=== PATIENT | female | born 1940 | race Caucasian/White ===

== ENCOUNTER → 2020-06-14 12:09 | Outpatient (CLI) | payer MEDICARE, BC, SELFPAY ==
--- NOTE | 2020-06-14 13:00 | MRI_ITS ---
STUDY: MRI BRAIN WITH AND WITHOUT CONTRAST (ATTENTION INTERNAL AUDITORY CANALS - I.A.C.''s) REASON FOR EXAM: Female, 79 years old. Sudden sensorineural hearing loss LEFT ear, hx prior surgery for acoustic neuroma right ear 1995 TECHNIQUE: Standardized multiplanar fat and water weighted pulse sequences were obtained. IV Dotarem 11ml was administered for the contrast portion of the examination. Thin multiplanar sections through the internal auditory canals were also performed with and without contrast. COMPARISON: None. FINDINGS: Right mastoidectomy bowl is completely filled with soft tissue density without obvious contrast enhancement. 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 Minimal mucosal edema in the posterior aspect of the left temporal mastoid bone. Normal left internal auditory canal without suspicious contrast enhancement of the 7th and 8th nerve bundles. No abnormal contrast enhancement of the membranous labyrinth. There is no demonstrated intracanalicular or cisternal vestibular schwannoma (acoustic neuroma). There is no enhancement of the left VIIth or VIIIth cranial nerves. Normal left cochlea, vestibule and semicircular canal. Normal size of the ventricles and extra-axial spaces for the patient''s age. Multiple T2 FLAIR hyperintensity foci in the white matter of both cerebral hemispheres are chronic white matter ischemic changes. No diffusion restriction throughout the brain parenchyma. Normal bilateral basal ganglia. Normal thalami. Normal flow voids within the major intracranial circulation suggesting patency by spin echo criteria. Normal venous enhancement. There is no enhancing intra-axial or extra-axial abnormality. There is no extra-axial fluid accumulation. Normal sella turcica, pituitary gland, infundibular stalk, optic chiasm and hypothalamus. Normal tectal plate and pineal gland. Normal midbrain, markel and medulla. Normal cerebellum. Normal basal cisterns. No demonstrated orbital abnormality, within the constraints of a routine brain study. Normal visualized paranasal sinuses. Normal calvarium and skull base. Normal visualized soft tissue structures. Normal visualized upper cervical spine. MRI/Brain W/WO Contrast IMPRESSION: 1. No MRI evidence of left vestibular schwannoma or any suspicious enhancing lesions of the left internal auditory canal and left membranous labyrinth. 2. Abnormal right mastoidectomy bowl filled with mixed soft tissue densities. This extends into the obliterated right internal auditory canal without contrast enhancement. These are at least postop changes but comparison will help determine interval changes. 3. Chronic white matter ischemic changes in both cerebral hemispheres. Electronically Signed: Bulmaro Samuels MD at 10:34 EST , Service support ,
== END ==
PROVIDERS: PCP Student in an Organized Health Care Education/Training Program; Referring Provider Otolaryngology; Visit Provider Otolaryngology
DX: H91.22 Sudden idiopathic hearing loss, left ear (principal)
CPT/HCPCS: 70553; A9575